=== PATIENT | male | born 1965 | race American Indian/Alaskan Native ===

== ENCOUNTER 2020-11-20 17:22 | Emergency (ER) | payer BC ==
[2020-11-20 19:33] LABS: Basophils % (Auto) 0.5 % (0.0-1.8); Eosinophils # (Auto) 0.1 K/mm3 (0.0-0.4); Eosinophils % (Auto) 1.6 % (0.0-4.3); Hematocrit 48.1 % (35.5-45.6); Hemoglobin 15.3 gm/dl (11.8-15.2); Lymphocytes # (Auto) 2.3 K/mm3 (1.2-5.4); Lymphocytes % (Auto) 26.4 % (13.4-35.0); Mean Corpuscular HGB Conc 32 % (32-34); Mean Corpuscular Volume 82 fl (84-94); Monocytes # (Auto) 0.9 K/mm3 (0.0-0.8); Monocytes % (Auto) 10.9 % (0.0-7.3); Platelet Count 178 K/mm3 (140-440); Red Blood Count 5.85 M/mm3 (3.65-5.03)
[2020-11-20 19:54] LABS: Blood Urea Nitrogen 13 mg/dL (9-20)
--- NOTE | 2020-11-20 20:08 | Cat Scan Report ---
CT head/brain wo con INDICATION / CLINICAL INFORMATION: 55 years Male; seizure activity. TECHNIQUE: Routine CT head without contrast. All CT scans at this location are performed using CT dos e reduction for ALARA by means of automated exposure control. COMPARISON: None. FINDINGS: BRAIN / INTRACRANIAL CONTENTS: No acute hemorrhage, mass effect, midline shift, hydrocephalus, or acu te, large territorial infarct. There are moderate to marked, confluent areas of decreased attenuation in the white matter of the cer ebral hemispheres, as well as the gangliocapsular regions. These are nonspecific findings and may be related to microangiopathy (hypertension, diabetes, atherosclerosis), given the patient's age. It sj ht be difficult to evaluate for small areas of ischemia without diffusion imaging by MRI. Mild pontin e disease suspected. CRANIOCERVICAL JUNCTION: No significant abnormality. ORBITS: No significant abnormality of visualized orbits. SINUSES / MASTOIDS: Visualized paranasal sinuses and mastoid air cells are essentially clear. ADDITIONAL FINDINGS: Atherosclerotic disease is seen in the anterior and posterior circulation. IMPRESSION: 1. No focal mass, hemorrhage, hydrocephalus, or acute, large territorial infarct. Follow-up with diff usion imaging by MRI, as clinically warranted. Signer Name: Shun Jackson MD, III Signed: 11/20/2020 8:04 PM Workstation Name: [id number]
[2020-11-20 20:13] LABS: BUN/Creatinine Ratio 13; Calcium 8.9 mg/dL (8.4-10.2)
--- NOTE | 2020-11-20 20:48 | Emergency Department Report ---
ED Seizure HPI - General Chief Complaint: Medical Clearance Stated Complaint: SEIZURE LIKE ACTIVITY Time Seen by Provider: 11/20/20 17:26 Source: EMS Mode of arrival: Stretcher Limitations: No Limitations - History of Present Illness Initial Comments: Patient is a 55-year-old F British male with a past medical history of end- stage renal disease who had seizure-like activity prior to arrival. Patient states that he was at dialysis and was towards the end of his dialysis session. He states he started feeling strange and was noted to be shaking. Patient states he has a vague memory of the shaking episode. There are no eyewitnesses that are present currently with him. Patient states he definitely remembers getting into the ambulance and now feels as though he is back to his baseline is no longer having any shaking symptoms. He denies any nausea vomiting diarrhea cough cold congestion fevers or chills. States he feels back to baseline and denies any headache. - Related Data Previous Rx's Medication Instructions Recorded Last Taken Type LORazepam [Ativan] 0.5 mg PO BID #6 tab 11/20/20 Unknown Rx Allergies Allergy/AdvReac Type Severity Reaction Status Date / Time No Known Allergies Allergy Verified 11/20/20 18:40 ED Review of Systems ROS: Stated complaint: SEIZURE LIKE ACTIVITY Other details as noted in HPI Comment: All other systems reviewed and negative ED Past Medical Hx - Past Medical History Previous Medical History?: Yes Hx Hypertension: Yes Hx CVA: Yes Hx Diabetes: Yes Hx Renal Disease: Yes - Social History Smoking Status: Never Smoker - Medications Home Medications: Home Medications Medication Instructions Recorded Confirmed Last Taken Type LORazepam [Ativan] 0.5 mg PO BID #6 tab 11/20/20 Unknown Rx ED Physical Exam - General Limitations: No Limitations General appearance: alert, in no apparent distress - Head Head exam: Present: atraumatic, normocephalic - Eye Eye exam: Present: normal appearance - ENT ENT exam: Present: mucous membranes moist - Neck Neck exam: Present: normal inspection - Respiratory Respiratory exam: Present: normal lung sounds bilaterally. Absent: respiratory distress, wheezes, rales, rhonchi - Cardiovascular Cardiovascular Exam: Present: regular rate, normal rhythm, normal heart sounds. Absent: systolic murmur, diastolic murmur, rubs, gallop - GI/Abdominal GI/Abdominal exam: Present: soft, normal bowel sounds. Absent: distended, tenderness, guarding, rebound - Rectal Rectal exam: Present: deferred - Extremities Exam Extremities exam: Present: normal inspection - Back Exam Back exam: Present: normal inspection - Neurological Exam Neurological exam: Present: alert, oriented X3 - Psychiatric Psychiatric exam: Present: normal affect, normal mood - Skin Skin exam: Present: warm, dry, intact, normal color. Absent: rash ED Course Vital Signs 11/20/20 11/20/20 11/20/20 18:30 18:36 18:37 Temperature Pulse Rate Respiratory Rate Blood Pressure Blood Pressure [Right] O2 Sat by Pulse 100 100 100 Oximetry 11/20/20 11/20/20 11/20/20 18:39 18:40 19:30 Temperature 97.6 F 97.8 F Pulse Rate 70 Respiratory 18 Rate Blood Pressure 106/79 Blood Pressure 106/67 [Right] O2 Sat by Pulse 100 Oximetry ED Medical Decision Making - Lab Data Result diagrams: 11/20/20 19:05 11/20/20 19:05 Lab Results 11/20/20 11/20/20 11/20/20 Range/Units 19:05 19:05 19:05 WBC 8.6 (4.5-11.0) K/mm3 RBC 5.85 H (3.65-5.03) M/mm3 Hgb 15.3 H (11.8-15.2) gm/dl Hct 48.1 H (35.5-45.6) % MCV 82 L (84-94) fl MCH 26 L (28-32) pg MCHC 32 (32-34) % RDW 17.0 H (13.2-15.2) % Plt Count 178 (140-440) K/mm3 Lymph % (Auto) 26.4 (13.4-35.0) % Bath % (Auto) 10.9 H (0.0-7.3) % Eos % (Auto) 1.6 (0.0-4.3) % Baso % (Auto) 0.5 (0.0-1.8) % Lymph # (Auto) 2.3 (1.2-5.4) K/mm3 Bath # (Auto) 0.9 H (0.0-0.8) K/mm3 Eos # (Auto) 0.1 (0.0-0.4) K/mm3 Baso # (Auto) 0.0 (0.0-0.1) K/mm3 Seg Neutrophils % 60.6 (40.0-70.0) % Seg Neutrophils # 5.2 (1.8-7.7) K/mm3 Sodium 138 (137-145) mmol/L Potassium 3.8 (3.6-5.0) mmol/L Chloride 93.6 L (98-107) mmol/L Carbon Dioxide 20 L (22-30) mmol/L Anion Gap 28 mmol/L BUN 13 (9-20) mg/dL Creatinine 1.0 (0.8-1.3) mg/dL Estimated GFR > 60 ml/min BUN/Creatinine Ratio 13 % Glucose 86 (75-100) mg/dL Calcium 8.9 (8.4-10.2) mg/dL Magnesium 2.10 (1.7-2.3) mg/dL - Radiology Data CT head/brain wo con INDICATION / CLINICAL INFORMATION: 55 years Male; seizure activity. TECHNIQUE: Routine CT head without contrast. All CT scans at this location are performed using CT dose reduction for ALARA by means of automated exposure control. COMPARISON: None. FINDINGS: BRAIN / INTRACRANIAL CONTENTS: No acute hemorrhage, mass effect, midline shift, hydrocephalus, or acute, large territorial infarct. There are moderate to marked, confluent areas of decreased attenuation in the white matter of the cerebral hemispheres, as well as the gangliocapsular regions. These are nonspecific findings and may be related to microangiopathy (hypertension, diabetes, atherosclerosis), given the patient's age. It might be difficult to evaluate for small areas of ischemia without diffusion imaging by MRI. Mild pontine disease suspected. CRANIOCERVICAL JUNCTION: No significant abnormality. ORBITS: No significant abnormality of visualized orbits. SINUSES / MASTOIDS: Visualized paranasal sinuses and mastoid air cells are essentially clear. ADDITIONAL FINDINGS: Atherosclerotic disease is seen in the anterior and posterior circulation. IMPRESSION: 1. No focal mass, hemorrhage, hydrocephalus, or acute, large territorial infarct. Follow-up with diffusion imaging by MRI, as clinically warranted. Signer Name: Shun Jackson MD, III Signed: 11/20/2020 8:04 PM Workstation Name: [id number] - Medical Decision Making Monitor the patient over the last several hours. No further seizure-like activi ty. Is questionable whether the patient has had a full tonic-clonic seizure. Patient will be discharged home with follow-up with neurology. We will place the patient on short course of Ativan. Critical care attestation.: If time is entered above; I have spent that time in minutes in the direct care of this critically ill patient, excluding procedure time. ED Disposition Clinical Impression: Seizure-like activity Disposition: DC-01 TO HOME OR SELFCARE Is pt being admited?: No Does the pt Need Aspirin: No Condition: Stable Instructions: Non-Epileptic Seizures, Adult Prescriptions: LORazepam [Ativan] 0.5 mg PO BID #6 tab Referrals: ARIANA OLGUIN MD [Referring] - 3-5 Days LOW DELAROSA MD [Referring] - 3-5 Days Time of Disposition: 20:47
[2020-11-21 01:29] VITALS: BP 112/62
== END 2020-11-21 02:49 | disposition home or self-care (01) ==
LOC: ED 17:22
DX: R56.9 Unspecified convulsions (principal); N18.6 End stage renal disease; E11.22 Type 2 diabetes mellitus with diabetic chronic kidney disease; I12.0 Hypertensive chronic kidney disease with stage 5 chronic kidney disease or end stage renal disease; Z99.2 Dependence on renal dialysis
CPT/HCPCS: 36415; 70450; 80048; 83735; 85025; 99284

== ENCOUNTER 2021-02-26 11:24 | Emergency (ER) | payer BC, MEDICARE ==
--- NOTE | 2021-02-26 11:49 | Emergency Department Report ---
ED CPR HPI - General Chief Complaint: Cardiac Arrest/CPR Stated Complaint: CARDIAC ARREST Time Seen by Provider: 02/26/21 11:36 Source: EMS Mode of arrival: Stretcher Limitations: Other - History of Present Illness Initial Comments: Patient is a 55-year-old F Armenian male past medical history of end-stage renal disease who is presenting in cardiac arrest. Patient was at dialysis when he lost consciousness. Noted to not have a pulse and CPR was initiated. Paramedics arrived and placed a LMA to oxygenate the patient. Patient initially in PEA and the patient was started on epinephrine. Patient received a total of 4 rounds of epinephrine prior to arrival. Because the patient has end-stage renal disease he also received a sodium bicarb and calcium gluconate. Patient then went into V. fib and was defibrillated twice. Last rhythm before patient's arrival was asystole. No other history is known at this time. - Related Data Previous Rx's Medication Instructions Recorded Last Taken Type LORazepam [Ativan] 0.5 mg PO BID #6 tab 11/20/20 Unknown Rx Allergies Allergy/AdvReac Type Severity Reaction Status Date / Time No Known Allergies Allergy Verified 11/20/20 18:40 ED Review of Systems ROS: Stated complaint: CARDIAC ARREST Other details as noted in HPI Comment: Unobtainable due to pts medical conditions ED Past Medical Hx - Past Medical History Previous Medical History?: Yes Hx Hypertension: Yes Hx CVA: Yes Hx Diabetes: Yes Hx Renal Disease: Yes - Social History Smoking Status: Never Smoker - Medications Home Medications: Home Medications Medication Instructions Recorded Confirmed Last Taken Type LORazepam [Ativan] 0.5 mg PO BID #6 tab 11/20/20 Unknown Rx ED Physical Exam - General Limitations: Other General appearance: obtunded, other (GCS of 3) - Head Head exam: Present: atraumatic, normocephalic - Eye Eye exam: Present: other (Pupils fixed and dilated) - ENT ENT exam: Present: mucous membranes moist - Neck Neck exam: Present: normal inspection - Respiratory Respiratory exam: Present: other (No spontaneous breath sounds). Absent: normal lung sounds bilaterally, respiratory distress - Cardiovascular Cardiovascular Exam: Present: other (No spontaneous heart tones) - GI/Abdominal GI/Abdominal exam: Present: soft - Rectal Rectal exam: Present: deferred - Extremities Exam Extremities exam: Present: normal inspection - Back Exam Back exam: Present: normal inspection - Skin Skin exam: Present: warm, dry, intact, normal color. Absent: rash ED Course - Reevaluation(s) Reevaluation #1: 02/26/21 11:52 Patient was intubated by me using direct laryngoscopy using a MAC 3 and a 7.5 endotracheal tube. There was good CO2 change on monitor and equal breath sounds. CPR was continued. Patient given additional round of calcium sodium bicarb and epinephrine. No change on the monitor patient remained in asystole. Patient's total downtime was approximately 30 minutes. Patient pronounced at 1129 Critical care attestation.: If time is entered above; I have spent that time in minutes in the direct care of this critically ill patient, excluding procedure time. ED Disposition Clinical Impression: Cardiopulmonary arrest Disposition: 20 Is pt being admited?: No Does the pt Need Aspirin: No Condition: Stable Time of Disposition: 11:53
[2021-02-26] MEDS ORDERED: CALCIUM CHLORIDE 1,000 MG/10 ML SYRINGE IV ONE (14:36)
[2021-02-26] MEDS ORDERED: SODIUM BICARB 8.4% 50 MEQ/50 ML SYRINGE IV ONE (14:36)
[2021-02-26] MEDS ORDERED: EPINEPHrine 1 MG/10 ML SYRINGE ONE (14:36)
== END 2021-02-26 15:46 ==
LOC: ED 11:24
DX: I46.9 Cardiac arrest, cause unspecified (principal); I12.0 Hypertensive chronic kidney disease with stage 5 chronic kidney disease or end stage renal disease; E11.22 Type 2 diabetes mellitus with diabetic chronic kidney disease; N18.6 End stage renal disease; Z99.2 Dependence on renal dialysis
CPT/HCPCS: 31500; 92950; 99285; J0171; J3490